=== PATIENT | female | born 1985 | race Caucasian/White ===

== ENCOUNTER 2024-04-24 17:16 | Emergency (ER) | payer OTHER ==
[2024-04-24] MEDS ORDERED: predniSONE 20 MG Tab ONE (18:00)
[2024-04-24] MEDS: predniSONE 20 MG Tab PO ONE (18:03)
== END 2024-04-24 18:09 | disposition home or self-care (01) ==
LOC: JP.ED 17:16
DX: L50.9 Urticaria, unspecified (principal)
CPT/HCPCS: 99282; J7512